=== PATIENT | male | born 1955 | race Caucasian/White ===

== ENCOUNTER 2018-03-18 18:17 | Emergency (ER) | payer OTHER ==
[~2018-03-18] VITALS: Ht 188 cm; Wt 83.8 kg
[~2018-03-18 18:17] MED LIST: CLEOCIN300 MG PO; COMBIVENT RESPIM4 GM IH; CYCLOBENZAPRINE5 MG PO; FOLIC ACID1 MG PO; GLUCOPHAGE500 MG PO; HYDROCODON-ACE1 EAC5 PO; LEVEMIR FL100 UNITS/ SC; LEVETIRACETAM500 MG PO; NOVOLOG PE100 UNITS/ SC; PANTOPRAZOLE SO40 MG PO; PRADAXA150 MG PO; SILVADENE20 GM TP; TOPROL XL25 MG PO; VITAMIN B-1100 MG PO
[2018-03-18 19:54] LABS: HEMATOCRIT 35.9 % (38.0-50.0); HEMOGLOBIN 12.5 G/DL (12.5-16.6); MCH 29.5 PG (29.0-34.0); MCHC 34.8 G/DL (30.0-36.0); MCV 84.7 FL (86-99); PLATELET COUNT 231 K/uL (156-360); RBC DIS.WIDTH-CV 13.2 % (11.8-14.6); RBC DIS.WIDTH-SD 41.1 % (39-53); RED BLOOD COUNT 4.24 M/uL (4.00-5.50); WHITE BLOOD COUNT 10.4 K/uL (4.1-10.2)
[2018-03-18 20:02] LABS: ALBUMIN 3.9 g/dL (3.2-4.8); CHLORIDE 92 mEq/L (99-109); POTASSIUM 4.3 mEq/L (3.7-5.4); SODIUM 131 mEq/L (136-147)
[2018-03-18 20:05] LABS: GLUCOSE 333 mg/dL (70-99); TOTAL PROTEIN 6.8 g/dL (6.4-8.3)
[2018-03-18 20:06] LABS: TOTAL BILIRUBIN 0.4 mg/dL (0.0-1.0)
[2018-03-18 20:08] LABS: ALKALINE PHOSPHATASE 56 IU/L (3-129); CREATININE 1.5 mg/dL (0.6-1.3); GFR ESTIMATE (CALCULATED) 50 mL/min/ (58.99-99999)
[2018-03-18 20:09] LABS: UREA NITROGEN (BUN) 14 mg/dL (9-23)
[2018-03-18 20:10] LABS: AST (GOT) 10 IU/L (2-34)
[2018-03-18 20:11] LABS: ALT (GPT) 11 IU/L (3-49)
[2018-03-18 21:09] VITALS: BP 129/81
== END 2018-03-18 21:10 | disposition home or self-care (01) ==
LOC: EME 18:17
PROVIDERS: Physician Assistant
DX: R04.0 Epistaxis (principal); E87.1 Hypo-osmolality and hyponatremia; K04.7 Periapical abscess without sinus; E11.9 Type 2 diabetes mellitus without complications; Z79.4 Long term (current) use of insulin; I10 Essential (primary) hypertension; J44.9 Chronic obstructive pulmonary disease, unspecified; K21.9 Gastro-esophageal reflux disease without esophagitis; F41.9 Anxiety disorder, unspecified; F17.200 Nicotine dependence, unspecified, uncomplicated; Z85.9 Personal history of malignant neoplasm, unspecified; Z88.0 Allergy status to penicillin; Z88.1 Allergy status to other antibiotic agents
CPT/HCPCS: 80053; 85027; 99281; 99284

== ENCOUNTER 2018-03-25 11:57 | Emergency (ER) | payer OTHER ==
[~2018-03-25] VITALS: Ht 188 cm; Wt 83.8 kg
[2018-03-25 14:10] LABS: BASOPHIL (%) 0.3 % (0-1); BASOPHIL COUNT 0.1 K/uL (0-0.1); EOSINOPHIL (%) 0 % (0-5); HEMATOCRIT 36.6 % (38.0-50.0); HEMOGLOBIN 12.7 G/DL (12.5-16.6); IMMATURE GRANULOCYTE (%) 0.9 % (0.0-0.7); LYMPHOCYTE (%) 4.5 % (15-42); LYMPHOCYTE COUNT 1.1 K/uL (1.0-2.8); MCH 28.6 PG (29.0-34.0); MCHC 34.7 G/DL (30.0-36.0); MCV 82.4 FL (86-99); MONOCYTE (%) 8.5 % (3-12); NEUTROPHIL (%) 85.8 % (45-76); PLATELET COUNT 291 K/uL (156-360); RBC DIS.WIDTH-CV 12.8 % (11.8-14.6); RBC DIS.WIDTH-SD 38.9 % (39-53); RED BLOOD COUNT 4.44 M/uL (4.00-5.50); WHITE BLOOD COUNT 23.3 K/uL (4.1-10.2)
[2018-03-25 14:29] LABS: CHLORIDE 87 MEQ/L (99-109)
[2018-03-25 14:35] LABS: CREATININE 1.2 MG/DL (0.6-1.3); GFR ESTIMATE (CALCULATED) > 59 mL/min/ (58.99-99999); GLUCOSE 265 mg/dL (70-99); UREA NITROGEN (BUN) 16 mg/dL (9-23)
[2018-03-25 14:37] LABS: POTASSIUM 5.4 MEQ/L (3.7-5.4); SODIUM 124 MEQ/L (136-147)
[2018-03-25 18:40] LABS: INTER. NORMALIZED RATIO 1.3
[2018-03-25 18:43] LABS: PTT 26.3 SEC (25-37)
[2018-03-25] MEDS ORDERED: UNABLE TO OBTAIN (23:56)
[2018-03-26 02:40] VITALS: BP 143/86
== END 2018-03-26 03:27 | disposition short-term general hospital (02) ==
LOC: EME 11:57
PROVIDERS: Emergency Medicine
DX: M27.2 Inflammatory conditions of jaws (principal); E11.69 Type 2 diabetes mellitus with other specified complication; J44.9 Chronic obstructive pulmonary disease, unspecified; I10 Essential (primary) hypertension; K21.9 Gastro-esophageal reflux disease without esophagitis; F41.9 Anxiety disorder, unspecified; Z79.4 Long term (current) use of insulin; F17.200 Nicotine dependence, unspecified, uncomplicated; Z88.0 Allergy status to penicillin; Z88.1 Allergy status to other antibiotic agents
CPT/HCPCS: 70491; 80048; 82948; 83605; 85025; 85610; 85730; 86850; 86900; 86901; 87040; 99281; 99285; J0692; J3010; J3370; J7030; J7040